=== PATIENT | female | born 1960 | race Caucasian/White ===

== ENCOUNTER 2017-02-09 19:44 | Emergency (ER) | payer OTHER ==
[~2017-02-09] VITALS: Ht 157.5 cm; Wt 106.8 kg
[~2017-02-09 19:44] MED LIST: ATEN25TA PO; ATEN25TA7 PO; HYDR-3797 PO; HYDR12.55 PO; KLO1T PO; LOSA100T3 PO; LOSA25TA21 PO; OMEP20TA86 PO; OXYC1TAB24 PO; SERT25TA6 PO; ZLP5T PO; omeprazole; tramadol
[2017-02-09 20:00] VITALS: BP 132/90; PULSE 64; RESP 18; O2SAT 96
[2017-02-09] MEDS ORDERED: 0.9% Sodium Chloride 1,000 ML IV ONE (21:01)
[2017-02-09] MEDS ORDERED: Ondansetron 2 mg/mL 2 mL Inj IVPUSH ONE (21:05)
--- NOTE | 2017-02-09 21:45 | ED.REPORT ---
HPI-General Illness Date of Service February 09, 2017 ED Provider: Ruiz Ellis MD Patient is a 56 year old female with a history of large uterine fibroids (pt has been previously instructed to have a hysterectomy to "rule out cancer") who presents to the ED with suprapubic abdominal pain that began this evening. She is currently seeking relief for her pain. The pain is a constant pressure with intermittent episodes of severe, sharp pain. Patient was seen at Urgent Care this evening for worsening abdominal pain, low back pain, vaginal spotting, subjective numbness/weakness in the lower extremities, fatigue and urine/fecal incontinence which she attributes to being severely painful. She was noted to have an appointment with TRANSMISSION SYSTEM OPERATOR on 02/23. Patient has been previously seen at the [facility] for uterine fibroids but Urgent Care was unable to obtain the records. Urgent Care performed an extensive workup including CT abdomen/pelvis with contrast and lab work. CT revealed "no definite acute intraabdominal abnormalities", "no evidence of appendicitis", "evidence of chronic diverticulosis without diverticulitis" and a "lobulated uterus with fibroids". Lab work revealed: Mildly elevated CRP at 1.7 Lipase within normal limits Renal function is within normal limits No significant electrolytes UA revealed: No findings suggestive of UTI ESR within normal limits CBC triage today demonstrate borderline leukocytosis 10.5 and Hct 49.2 Nursing Notes Stated Complaint: UTERINE PAIN Chief Complaint: Female Abdominal Pain Nursing Notes Reviewed: Yes Allergies: Coded Allergies: prochlorperazine maleate (Verified Allergy, Intermediate, RESTLESSNESS/' WANTED TO JUMP OUT OF MY SKIN", 01/01/16) hydromorphone (Verified Allergy, Mild, headache, 02/09/17) Penicillins (Verified Allergy, Unknown, RASH, LONG TIME AGO, 01/01/16) promethazine HCl (Verified Adverse Reaction, Severe, Restlessness, 01/01/16) acetaminophen (Verified Adverse Reaction, Intermediate, UPSET STOMACH, N/V , 01/03/16) hydrocodone (Verified Adverse Reaction, Intermediate, Hives/RASH, 01/03/16) HAPPENED A COUPLE DAYS AFTER TAKING ketorolac tromethamine (Verified Adverse Reaction, Intermediate, RESTLESSNESS, "WANTED TO JUMP OUT OF MY SKIN", 01/01/16) lisinopril (Verified Adverse Reaction, Intermediate, TINGLING, NUMBNESS, ) metoprolol (Verified Adverse Reaction, Intermediate, TINGLING NUMBNESS ON SKIN, 01/01/16) prochlorperazine edisylate (Verified Adverse Reaction, Intermediate, RESTLESSNESS/"WANTED TO JUMP OUT OF MY SKIN", 01/01/16) Uncoded Allergies: HYDROXAZINE (Allergy, Mild, 08/01/16) Scheduled Atenolol (Atenolol) 25 Mg Tablet 25 MG PO DAILY Clonazepam (Clonazepam) 1 Mg Tab 1 MG PO BID Losartan Potassium (Cozaar) 100 Mg Tablet 100 MG PO DAILY Sertraline HCl (Sertraline) 25 Mg Tablet 25 MG PO DAILY Scheduled PRN Hydroxyzine Pamoate (HydrOXYzine Pamoate) 25 Mg Capsule 25 MG PO BID PRN PRN For Anxiety Ondansetron ODT (Zofran ODT) 4 Mg Tablet 4 MG PO Q4H PRN PRN For Nausea Zolpidem (Ambien) 5 Mg Tab 5 MG PO HS PRN PRN For Insomnia oxyCODONE-Acetaminophen 5-325 mg (oxyCODONE-Acetaminophen 5-325 mg) 1 Each Tablet 1-2 TAB PO Q6H PRN PRN For Pain oxyCODONE-Acetaminophen 5-325 mg (oxyCODONE-Acetaminophen 5-325 mg) 1 Each Tablet 1 TAB PO Q4H PRN PRN For Pain Miscellaneous Medications ([omeprazole]) ([tramadol]) Atenolol-Expunged Drug, Do Not Renew! (Atenolol-Expunged Drug, Do Not Renew!) 25 Mg Tablet 0 PO Hydrochlorothiazide-Expunged, Do Not Renew! (Hydrochlorothiazide-Expunged, Do Not Renew!) 12.5 Mg Tablet 0 PO Losartan-Expunged Drug, Do Not Renew! (Losartan-Expunged Drug, Do Not Renew!) 25 Mg Tablet 0 PO Omeprazole-Expunged Drug, Do Not Renew! (Omeprazole-Expunged Drug, Do Not Renew! ) 20 Mg Tablet.dr Reinaldo LOPEZ General Time Seen by MD: 20:56 Chief Complaint Abdominal pain Hx Obtained From: Patient Arrived By: Walk-in Sudden in Onset?: No Onset Occurred: 1 - 4 hours ago Symptom Duration: Since onset Location: : Abdomen Quality: Cramping, Painful, Sharp Radiation: : Does not radiate Severity: Current: Moderate Severity: Maximum: Severe Associated with: Reports: Abdominal pain, Nausea, Pain Additional Notes: Incontinence Pertinent Negative: Pt denies other symptoms Recent Healthcare: No recent hospitalization, Recent doctor visit Past Medical History Past Medical History Notes: Patient eloped from the emergency Department 01/04/2016 last ED visit Past Medical History Rosacea Chronic foot pain Fibromyalgia Irritable bowel syndrome Thoracic outlet syndrome Mnire's disease Obesity Chronic back pain Asthma Undergoing evaluation for MS or lupus, awaiting scheduled MRI and followup with a railroad car cleaning supervisor Migraines Hypertension GERD Bipolar and PTSD [facility] Past Surgical History Right foot x2 Left foot x1 Appendectomy Uterine cyst Breast augmentation and repair Family History Noncontributory Smoking History Former Smoker Social History Alcohol Use: Denies alcohol use Drug Use: THC Other Social History: Poor social support, Lives alone, , Local resident Occupation lives by self Ambulatory Status Independent Review of Systems Full Review of Systems Constitutional: Reports: Fatigue GI: Reports: Abdominal pain (suprapubic) Female: Reports: Incontinence (Bowel and bladder ), Pelvic pain Musculoskeletal: Reports: Back pain (Lower ) Neurologic: Reports: Weakness (in LE), Denies: Numbness (in LE) Complete sys rev & neg: except as marked. Physical Exam Vital Signs Vital Signs Date Time Temp Pulse Resp B/P Pulse Ox O2 Delivery O2 Flow Rate FiO2 02/09/17 22:58 64 18 132/90 96 Room Air 02/09/17 20:00 36.6 64 18 132/90 96 Room Air Initial VS: Reviewed Neck: Supple, Non-tender, Full range of motion Extremities: Vascular intact, Neuro intact, No swelling, No tenderness Skin: Warm, Dry, No cyanosis Neurologic: Alert, Oriented, Nonfocal Psychiatric: Mood/affect normal, Behavior normal, Normal thought content General/Constitutional: Awake, Alert Distress / Hydration: Positive: Distress moderate Behavior: Positive: Anxious, Tearful Head / Eyes: Atraumatic, Normocephalic, PERRL Respiratory / Chest: Atraumatic, Breath sounds NL, Breath sounds = bilat, No respiratory distress Cardiovascular: Heart rate NL, Regular rhythm, Heart sounds NL, No murmurs, No rubs Abdomen: Atraumatic, Soft, Non-tender, BS normoactive, No distention Interpretation & Diagnostics Lab Results Interpretation Result Diagram: 02/09/17213402/09/172134 Test 02/09/17 21:35 White Blood Count 10.5th/mm3 (3.8-10.1) Red Blood Count 5.32mil/mm3 (3.90-5.20) Hemoglobin 16.7g/dL (12.0-15.6) Hematocrit 49.2% (35.0-46.0) Mean Corpuscular Volume 92.5fL (81-100) Mean Corpuscular Hemoglobin 31.4pg (27.0-35.0) Mean Corpuscular Hemoglobin Concent 33.9% (32.0-37.0) Red Cell Distribution Width 12.4% (12.3-15.4) Platelet Count 270bil/L (150-400) Neutrophils (%) (Auto) 62.6% (40-74) Lymphocytes (%) (Auto) 25.8% (14-46) Monocytes (%) (Auto) 9.5% (4-12) Eosinophils (%) (Auto) 1.2% (0-5) Basophils (%) (Auto) 0.7% (0-3) Sodium Level 138mEq/L (134-144) Potassium Level 3.9mEq/L (3.5-5.2) Chloride Level 96mEq/L (97-108) Carbon Dioxide Level 27mmol/L (18-29) Blood Urea Nitrogen 16mg/dL (6-24) Creatinine 0.61mg/dL (0.57-1.00) Estimat Glomerular Filtration Rate 144mL/min (>59) Glucose Level 97mg/dL (60-99) Calcium Level 9.8mg/dL (8.5-10.1) Magnesium Level 2.1mg/dL (1.6-2.6) Total Bilirubin 0.5mg/dL (0.0-1.2) Aspartate Amino Transf (AST/SGOT) 19U/L (0-50) Alanine Aminotransferase (ALT/SGPT) 17U/L (0-32) Alkaline Phosphatase 57U/L (25-150) Total Protein 7.8g/dL (6.4-8.4) Albumin 4.2g/dL (3.4-5.0) Lipase 23U/L (13-60) Re-Eval/Medical Decision Med Decision/Clinical Course Patient is a 56 year old female with a history of large uterine fibroids (pt has been previously instructed to have a hysterectomy to "rule out cancer") who presents to the ED with suprapubic abdominal pain that began this evening. She is currently seeking relief for her pain. The pain is a constant pressure with intermittent episodes of severe, sharp pain. Patient was seen at Urgent Care this evening for worsening abdominal pain, low back pain, vaginal spotting, subjective numbness/weakness in the lower extremities, fatigue and urine/fecal incontinence which she attributes to being severely painful. She was noted to have an appointment with TRANSMISSION SYSTEM OPERATOR on 02/23. Patient has been previously seen at the [facility] for uterine fibroids but Urgent Care was unable to obtain the records. Urgent Care performed an extensive workup including CT abdomen/pelvis with contrast and lab work. CT revealed "no definite acute intraabdominal abnormalities", "no evidence of appendicitis", "evidence of chronic diverticulosis without diverticulitis" and a "lobulated uterus with fibroids". Lab work revealed: Mildly elevated CRP at 1.7 Lipase within normal limits Renal function is within normal limits No significant electrolytes UA revealed: No findings suggestive of UTI ESR within normal limits CBC triage today demonstrate borderline leukocytosis 10.5 and Hct 49.2 Here in the emergency room the patient was treated with the below medications: morphine IV fluids Zofran Prior to arrival patient has had extensive workup. Upon sitting down with the patient and having a long conversation she reports that the symptoms that she is having today are chronic in nature and similar to prior episodes of pain but eventually attributed to her uterine fibroids. She reports a very high level of anxiety and stress related to have a uterine fibroids and like to have a hysterectomy. She is hardly scheduled follow-up with TRANSMISSION SYSTEM OPERATOR. We will her initial complaints of weakness in her legs and incontinence are quite concerning thorough neurologic examination today reveals no objective weakness in her legs she is able to easily stand up out of bed and walk and has normal sensation about the groin region. My suspicion for acute neurologic emergency is very low as none of her neurologic complaints or reproducible. Patient states that she does not want to be admitted and "is not sure why she was sent here". I feel that the patient likely would benefit from hysterectomy given the degree of symptoms that she is having related to her uterine fibroids. She understands that this would be best achieved through outpatient evaluation with TRANSMISSION SYSTEM OPERATOR. She reports that she is taking no pain medications at home whatsoever as she does not like the effects of opiates. I discussed with her that a prescription for oxycodone that she could take in the setting of severe breakthrough pain may temporarily help her until she can follow up with TRANSMISSION SYSTEM OPERATOR. She did report significant symptom improvement here after receiving this medication. At this time, I feel that she is appropriate for outpatient management. Prior to discharge follow-up and return precautions were reviewed in detail with the patient who verbalized understanding and agreement with the plan. The patient was discharged in stable condition. Time of Eval: 22:15 Patient Status: Condition improved Re-Evaluation/Progress Note: Patient is rechecked. She is informed of her results and diagnosis. All questions are addressed. She understands and agrees with the intended treatment plan. Counseled Regarding: Diagnosis, Lab results, Need for follow-up, When/why to return to ED Discharge & Departure Primary Impression: Uterine fibroid Uterine leiomyoma location: unspecified location Qualified Code: D25.9 - Leiomyoma of uterus, unspecified Additional Impressions: Lower abdominal pain Acute situational disturbance Chronic pelvic pain in female Anxiety Disposition: Home Discharge Condition All VS Reviewed: Yes Condition: Improved Patient Instructions: Uterine Fibroids (ED) Additional Instructions: Thank you for seeking care at the emergency room. It is difficult for us to make definitive diagnoses in the ED but we believe that your symptoms are likely due to your uterine fibroids. Our primary goal today in the ED was to evaluate you for any life-threatening conditions. Your evaluation was reassuring. You will be discharged with a prescription for Zofran and Buckhorn*. You should follow-up with your licensed acupuncturist in the next week. Please see referral. You should return to the ED immediately if you develop any worsening pain, fevers, vomiting, lightheadedness, weakness or any other concerning signs or symptoms. Thank you for letting us partake in your care today. *You have been prescribed a narcotic for pain relief. These drugs are usually combined with acetaminophen (Tylenol#3, Percocet, Darvocet, Anexsia, Vicodin) or aspirin (Empirin#3, Percodan, Synalogs-DC) for increased effect. Narcotics act on the central nervous system to reduce pain; they also impair mental alertness and physical abilities. We advise you not to drink alcohol, drive a car, or operate dangerous equipment when you are taking these drugs. You can lessen stomach irritation from your medicine by taking it with meals or a full glass of water. Common side effects of narcotics are: Nausea and vomiting , heartburn, constipation, dizziness, sleepiness, and mood changes. If you have bothersome side effects or symptoms of an allergic reaction (itching, hives, rash), stop taking your medicine and call your doctor or the emergency room right away. Please keep your narcotic medicine well out of the reach of children. Referrals: [facility] (PCP) Liang Garcia MD Scribe Attestation Portions of this note were transcribed by Barry Arriaza. I, Dr. Ellis personally performed the history, physical exam and medical decision-making; I reviewed and confirmed the accuracy of the information in the transcribed note. Signed by: Nabeel Barrera, 02/09/17 [id number]. copies to: [facility] Ruiz Ellis MD February 09, 2017 21:45 BARRY ARRIAZA February 09, 2017 22:15
[2017-02-09 21:48] LABS: BASOPHILS % (AUTO) 0.7 % (0-3); EOSINOPHILS % (AUTO) 1.2 % (0-5); MONOCYTES % (AUTO) 9.5 % (4-12); Mean Corpuscular Hemoglobin 31.4 pg (27.0-35.0); Mean Corpuscular Volume 92.5 fL (81-100); NEUTROPHILS % (AUTO) 62.6 % (40-74); Platelet Count 270 bil/L (150-400)
[2017-02-09 22:09] LABS: Magnesium 2.1 mg/dL (1.6-2.6)
[2017-02-09] MEDS ORDERED: OXYC1TAB24 PO (22:18)
[2017-02-09] MEDS ORDERED: ONDA4TAB9 PO (22:19)
[2017-02-09 22:58] VITALS: BP 132/90; PULSE 64; RESP 18; O2SAT 96
== END 2017-02-09 23:00 | disposition home or self-care (01) ==
LOC: SED 20:03
DX: D25.9 Leiomyoma of uterus, unspecified (principal); R10.30 Lower abdominal pain, unspecified; F43.0 Acute stress reaction; R10.2 Pelvic and perineal pain; F41.9 Anxiety disorder, unspecified; J45.909 Unspecified asthma, uncomplicated; I10 Essential (primary) hypertension; K21.9 Gastro-esophageal reflux disease without esophagitis; F31.9 Bipolar disorder, unspecified; F43.10 Post-traumatic stress disorder, unspecified; Z87.891 Personal history of nicotine dependence; Z88.8 Allergy status to other drugs, medicaments and biological substances; Z88.5 Allergy status to narcotic agent; Z88.0 Allergy status to penicillin; Z88.6 Allergy status to analgesic agent
CPT/HCPCS: 36415; 80053; 83690; 83735; 85025; 96361; 96374; 96375; 99285; J2270; J2405; J7030

== ENCOUNTER 2017-03-31 13:01 | Emergency (ER) | payer OTHER ==
[~2017-03-31] VITALS: Ht 157.5 cm; Wt 103.2 kg
[~2017-03-31 13:01] MED LIST changes: +ONDA4TAB9 PO
[2017-03-31 13:03] VITALS: BP 146/80; PULSE 65; RESP 20; O2SAT 98
--- NOTE | 2017-03-31 13:29 | ED.REPORT ---
HPI-General Illness Date of Service Mar 31, 2017 ED Provider: Dr. Winter Pt is a 56 year old female with a hx of HTN, asthma, presenting to the ED complaining of rectal bleeding onset yesterday that stopped after a single episode. Associated symptoms include mild urine and stool incontinence, 4 pre- syncopal like episodes (for a few days) associated with severe abdominal cramps , nausea, and abdominal distention. She describes the "spells" as a knot in her stomach that moves up through her body and then makes her legs "sink ". Denies dysuria, or any other symptoms at this time, or any hx of rectal bleeding, heart disease, cancer, kidney disease. The "spells" are always associated with pain, but not with bowel movements. Exacerbated by laying on her right side. She has an appointment for a biopsy of uterine fibroids on April 11. She had a CT scan in 01/2017 showing diverticulosis without diverticulitis and uterine fibroids. She is very fearful that she has uterine cancer and that this is spread into her bowels. Nursing Notes Stated Complaint: SYNCOPE EPISODES/RECTAL BLEEDING Chief Complaint: General Complaint Nursing Notes Reviewed: Yes Allergies: Coded Allergies: prochlorperazine maleate (Verified Allergy, Intermediate, RESTLESSNESS/' WANTED TO JUMP OUT OF MY SKIN", 01/01/16) hydromorphone (Verified Allergy, Mild, headache, 02/09/17) Penicillins (Verified Allergy, Unknown, RASH, LONG TIME AGO, 01/01/16) promethazine HCl (Verified Adverse Reaction, Severe, Restlessness, 01/01/16) acetaminophen (Verified Adverse Reaction, Intermediate, UPSET STOMACH, N/V , 01/03/16) ketorolac tromethamine (Verified Adverse Reaction, Intermediate, RESTLESSNESS, "WANTED TO JUMP OUT OF MY SKIN", 01/01/16) lisinopril (Verified Adverse Reaction, Intermediate, TINGLING, NUMBNESS, ) metoprolol (Verified Adverse Reaction, Intermediate, TINGLING NUMBNESS ON SKIN, 01/01/16) prochlorperazine edisylate (Verified Adverse Reaction, Intermediate, RESTLESSNESS/"WANTED TO JUMP OUT OF MY SKIN", 01/01/16) Uncoded Allergies: HYDROXAZINE (Allergy, Mild, 11/7/16) Scheduled Atenolol (Atenolol) 25 Mg Tablet 25 MG PO DAILY Clonazepam (Clonazepam) 1 Mg Tab 1 MG PO BID Losartan Potassium (Cozaar) 100 Mg Tablet 100 MG PO DAILY Sertraline HCl (Sertraline) 25 Mg Tablet 25 MG PO DAILY Scheduled PRN Hydroxyzine Pamoate (HydrOXYzine Pamoate) 25 Mg Capsule 25 MG PO BID PRN PRN For Anxiety Ondansetron ODT (Zofran ODT) 4 Mg Tablet 4 MG PO Q4H PRN PRN For Nausea Zolpidem (Ambien) 5 Mg Tab 5 MG PO HS PRN PRN For Insomnia oxyCODONE-Acetaminophen 5-325 mg (oxyCODONE-Acetaminophen 5-325 mg) 1 Each Tablet 1-2 TAB PO Q6H PRN PRN For Pain oxyCODONE-Acetaminophen 5-325 mg (oxyCODONE-Acetaminophen 5-325 mg) 1 Each Tablet 1 TAB PO Q4H PRN PRN For Pain Miscellaneous Medications ([omeprazole]) ([tramadol]) Atenolol-Expunged Drug, Do Not Renew! (Atenolol-Expunged Drug, Do Not Renew!) 25 Mg Tablet 0 PO Hydrochlorothiazide-Expunged, Do Not Renew! (Hydrochlorothiazide-Expunged, Do Not Renew!) 12.5 Mg Tablet 0 PO Losartan-Expunged Drug, Do Not Renew! (Losartan-Expunged Drug, Do Not Renew!) 25 Mg Tablet 0 PO Omeprazole-Expunged Drug, Do Not Renew! (Omeprazole-Expunged Drug, Do Not Renew! ) 20 Mg Tablet.dr Reinaldo LOPEZ General Time Seen by MD: 13:28 Chief Complaint Other (Rectal bleeding) Hx Obtained From: Patient Arrived By: Walk-in Sudden in Onset?: No Onset Occurred: Yesterday Symptom Duration: Since onset Recent Healthcare: No recent doctor visit, No recent hospitalization Similar Sx Previous: No Past Medical History Past Medical History Hx of Afib but not currently Rosacea Chronic foot pain Fibromyalgia Irritable bowel syndrome Thoracic outlet syndrome Mnire's disease Obesity Chronic back pain Asthma Undergoing evaluation for MS or lupus, awaiting scheduled MRI and followup with a professor of biblical studies Migraines Hypertension GERD Bipolar and PTSD Admitted to [facility] June 2014 Past Surgical History Right foot x2 Left foot x1 Appendectomy Uterine cyst Breast augmentation and repair Family History Noncontributory Smoking History Former Smoker Social History Alcohol Use: Denies alcohol use Drug Use: THC Other Social History: Poor social support, Lives alone, , Local resident Occupation lives by self Ambulatory Status Independent Review of Systems + Abdominal swelling Full Review of Systems Constitutional: Denies: Fever Respiratory: Denies: Shortness of breath Cardiovascular: Reports: Edema, Denies: Chest pain GI: Reports: Bloody/tarry stool, Nausea Neurologic: Reports: Bladder dysfunction, Bowel dysfunction, Syncope Complete sys rev & neg: except as marked. Physical Exam Vital Signs Vital Signs Date Time Temp Pulse Resp B/P Pulse Ox O2 Delivery O2 Flow Rate FiO2 03/31/17 16:26 36.8 66 19 122/71 97 Room Air 03/31/17 14:13 70 20 122/91 96 Room Air 03/31/17 13:03 36.6 65 20 146/80 98 Room Air Initial VS: Reviewed General/Constitutional: Well-developed, Well-nourished Head / Eyes: Atraumatic, Normocephalic, PERRL ENT: Mucous membranes moist, Conjunctiva normal, No scleral icterus Neck: Supple, Non-tender, Full range of motion Respiratory: Breath sounds normal, Clear to auscultation, No respiratory distress Cardiovascular: Regular rate & rhythm, Heart sounds normal, Intact distal pulses Extremities: Vascular intact, Neuro intact, No swelling, No tenderness Skin: Warm, Dry, No cyanosis Neurologic: Alert, Oriented, Nonfocal Psychiatric: Mood/affect normal, Behavior normal, Normal thought content While laying down: HR: 65 BP: 114/82 While standing: HR: 65 BP: 124/88 Abdomen: No guarding, No rebound Tenderness/Guarding/Rebound: Positive: Tender diffuse Rectum / Perineum: Atraumatic, Blood - occult heme -, No gross blood Old hemorrhoidal tissue. No stool present. Guaiac negative. Interpretation & Diagnostics Lab Results Interpretation Result Diagram: 03/31/17 1335 03/31/17 1335 Test 03/31/17 13:35 03/31/17 15:38 White Blood Count 11.2th/mm3 (3.8-10.1) Red Blood Count 5.12mil/mm3 (3.90-5.20) Hemoglobin 16.2g/dL (12.0-15.6) Hematocrit 48.7% (35.0-46.0) Mean Corpuscular Volume 95.1fL (81-100) Mean Corpuscular Hemoglobin 31.6pg (27.0-35.0) Mean Corpuscular Hemoglobin Concent 33.3% (32.0-37.0) Red Cell Distribution Width 12.3% (12.3-15.4) Platelet Count 275bil/L (150-400) Neutrophils (%) (Auto) 66.5% (40-74) Lymphocytes (%) (Auto) 22.9% (14-46) Monocytes (%) (Auto) 7.8% (4-12) Eosinophils (%) (Auto) 2.0% (0-5) Basophils (%) (Auto) 0.4% (0-3) Prothrombin Time 9.6sec (8.1-12.5) Prothromb Time International Ratio 0.90ratio Sodium Level 140mEq/L (134-144) Potassium Level 3.9mEq/L (3.5-5.2) Chloride Level 98mEq/L (97-108) Carbon Dioxide Level 27mmol/L (18-29) Blood Urea Nitrogen 15mg/dL (6-24) Creatinine 0.56mg/dL (0.57-1.00) Estimat Glomerular Filtration Rate 159mL/min (>59) Glucose Level 128mg/dL (60-99) Calcium Level 9.1mg/dL (8.5-10.1) Total Bilirubin 0.4mg/dL (0.0-1.2) Aspartate Amino Transf (AST/SGOT) 16U/L (0-50) Alanine Aminotransferase (ALT/SGPT) 16U/L (0-32) Alkaline Phosphatase 51U/L (25-150) Total Protein 7.3g/dL (6.4-8.4) Albumin 3.9g/dL (3.4-5.0) Urine Color Yellow (YELLOW) Urine Appearance Clear (CLEAR,HAZY) Urine pH 5.5 (5.0-8.0) Urine Specific [place] 1.010 (1.003-1.035) Urine Protein Negativemg/dL (NEG,TRACE) Urine Glucose (UA) Negativemg/dL (NEGATIVE) Urine Ketones Negativemg/dL (NEGATIVE) Urine Occult Blood Negative (NEGATIVE) Urine Nitrite Negative (NEGATIVE) Urine Bilirubin Negative (NEGATIVE) Urine Urobilinogen Normalmg/dL (NORMAL) Urine Leukocyte Esterase Negative (NEGATIVE) Urine RBC 0-2/hpf (0-2) Urine WBC 0-5/hpf (0-5) Urine Epithelial Cells Few/hpf (NONE-MOD) Urine Crystals None seen (NONE SEEN) Urine Bacteria Few/hpf (NONE-FEW) Urine Hyaline Casts None/lpf (NONE) Urine Granular Casts None seen (NONE SEEN) Urine Waxy Casts None seen (NONE SEEN) Urine Red Blood Cell Casts None seen (NONE SEEN) Urine White Blood Cell Casts None seen (NONE SEEN) Urine Mucus None seen (None Seen) Urine Trichomonas None seen (NONE SEEN) Urine Yeast None (NONE SEEN) Urinalysis Comment None Urine Culture Reflexed Not indicated ECG Interpretation ECG Interpretation: Sinus tachycardia with a rate of 100. Paired ventricular premature complexes. Abnormal R-wave progression, early transition. Time: 13:57 Interpreted by: ED physician Re-Eval/Medical Decision Time of Eval: 17:45 Patient Status: Condition improved Re-Evaluation/Progress Note: Performed physical exam. The pt last had a colonoscopy a few years ago. Discussed plan for discharge. Pt understands and agrees with plan. Counseled Regarding: Diagnosis, Lab results, Need for follow-up, When/why to return to ED Discharge & Departure Primary Impression: Lower abdominal pain Additional Impression: Near syncope Disposition: Home Discharge Condition All VS Reviewed: Yes Condition: Improved Patient Instructions: Acute Abdominal Pain (ED) Additional Instructions: No dangerous cause for your symptoms today was identified. Your labs and EKG look normal. Call Dr. Neely and the sole rounder to make an appointment for next week. You will likely need a colonoscopy in the near future. Return to the ER if you develop any new or worsening symptoms. I think your symptoms may be related to the mass effect of your uterine tumors. I recommend Levsin as needed to control a crampy pain. Referrals: [facility] (PCP) KEO NEELY Attestation Portions of this note were transcribed by Julissa Duran. I, Dr. Winter personally performed the history, physical exam and medical decision-making; I reviewed and confirmed the accuracy of the information in the transcribed note. Signed by: Nabeel Roberts, 03/31/2017 at 1810. copies to: KEO NEELY DO; [facility] Wilver Winter MD Mar 31, 2017 13:29 JULISSA DURAN Mar 31, 2017 13:36
[2017-03-31] MEDS ORDERED: 0.9% Sodium Chloride 1,000 ML IV ONE (13:32)
[2017-03-31] MEDS ORDERED: HYDROcodone-APAP 5-325 mg Tablet PO ONE (13:40)
[2017-03-31 13:47] LABS: INR 0.9 ratio
[2017-03-31 13:50] LABS: BASOPHILS % (AUTO) 0.4 % (0-3); MONOCYTES % (AUTO) 7.8 % (4-12); Mean Corpuscular Hemoglobin 31.6 pg (27.0-35.0); Mean Corpuscular Volume 95.1 fL (81-100); NEUTROPHILS % (AUTO) 66.5 % (40-74); Platelet Count 275 bil/L (150-400)
[2017-03-31 14:13] VITALS: BP 122/91; PULSE 70; RESP 20; O2SAT 96
[2017-03-31 16:02] LABS: APPEARANCE,URINE CLEAR (CLEAR,HAZY); COLOR,URINE YELLOW (YELLOW); OCCULT BLOOD,URINE NEGATIVE (NEGATIVE); PH,URINE 5.5 (5.0-8.0); UROBILINOGEN,URINE NORMAL (NORMAL)
[2017-03-31 16:26] VITALS: BP 122/71; PULSE 66; RESP 19; O2SAT 97
[2017-03-31] MEDS ORDERED: HYDROcodone-APAP 10-325 mg PO ONE (16:45)
[2017-03-31] MEDS ORDERED: HYOS-19 PO (18:15)
[2017-03-31 19:03] VITALS: BP 125/80; PULSE 59; RESP 20; O2SAT 99
[2017-04-04] MEDS ORDERED: ATEN25TA PO (15:18)
[2017-04-04] MEDS ORDERED: SERT25TA6 PO (15:18)
[2017-04-04] MEDS ORDERED: OMEP20TA86 PO (15:18)
[2017-04-04] MEDS ORDERED: HYDR12.55 PO (15:18)
[2017-04-04] MEDS ORDERED: [UNRECOGNIZED DRUG - CODE] TP (15:18)
[2017-04-04] MEDS ORDERED: PYR50 PO (15:18)
[2017-04-04] MEDS ORDERED: LOSA100T29 PO (15:18)
[2017-04-04] MEDS ORDERED: KLO1T PO (15:18)
[2017-04-04] MEDS ORDERED: vitamin d3 (15:18)
[2017-04-04] MEDS ORDERED: tramadol (15:18)
[2017-04-04] MEDS ORDERED: ALBU8.5H2 INHALATION (15:18)
[2017-04-04] MEDS ORDERED: VALA100026 PO (15:18)
== END 2017-03-31 19:04 | disposition home or self-care (01) ==
LOC: SED 13:01
DX: R10.30 Lower abdominal pain, unspecified (principal); R55 Syncope and collapse; R32 Unspecified urinary incontinence; R11.0 Nausea; R14.0 Abdominal distension (gaseous); E66.9 Obesity, unspecified; J45.909 Unspecified asthma, uncomplicated; I10 Essential (primary) hypertension; K21.9 Gastro-esophageal reflux disease without esophagitis; F31.9 Bipolar disorder, unspecified; F43.10 Post-traumatic stress disorder, unspecified; D25.9 Leiomyoma of uterus, unspecified; R73.03 Prediabetes; Z87.19 Personal history of other diseases of the digestive system; Z87.891 Personal history of nicotine dependence; Z68.41 Body mass index [BMI] 40.0-44.9, adult; Z88.8 Allergy status to other drugs, medicaments and biological substances; Z88.5 Allergy status to narcotic agent; Z88.0 Allergy status to penicillin; Z88.6 Allergy status to analgesic agent
CPT/HCPCS: 36415; 80053; 81000; 85025; 85610; 93005; 99284; A4300; G0463; J7030

== ENCOUNTER 2017-04-01 16:43 | Emergency (ER) | payer OTHER ==
[~2017-04-01] VITALS: Ht 157.5 cm; Wt 105.5 kg
[~2017-04-01 16:43] MED LIST changes: +HYOS-19 PO
[2017-04-01 16:51] VITALS: BP 151/87; PULSE 166; RESP 30; O2SAT 96
--- NOTE | 2017-04-01 17:05 | ED.REPORT ---
HPI-Chest Pain 40 and Over Date of Service Apr 01, 2017 ED Provider: Orville Spence DO The patient is a 56 year old female with history of atrial fibrillation, hypertension, asthma, fibromyalgia, irritable bowel syndrome, GERD, chronic pain , migraines, bipolar and PTSD, who presents to the emergency department complaining of chest pain, palpitations, and feeling like she is going to pass out. The patient states she gets lower abdominal cramping, loses the strength in her legs, then feels like she is going to pass out. She has had similar episodes intermittently for the last few years. She was seen in the emergency department yesterday for similar symptoms, as well as an episode of bright red stools. She had an EKG and blood work during this visit, and was discharged home. She also mentions recent difficulty urinating. Nursing Notes Stated Complaint: RAPID HEART RATE Chief Complaint: Chest Pain Nursing Notes Reviewed: Yes Allergies: Coded Allergies: prochlorperazine maleate (Verified Allergy, Intermediate, RESTLESSNESS/' WANTED TO JUMP OUT OF MY SKIN", 04/01/17) hydromorphone (Verified Allergy, Mild, headache, 04/01/17) Penicillins (Verified Allergy, Unknown, RASH, LONG TIME AGO, 04/01/17) promethazine HCl (Verified Adverse Reaction, Severe, Restlessness, 04/01/17) acetaminophen (Verified Adverse Reaction, Intermediate, UPSET STOMACH, N/V , 04/01/17) ketorolac tromethamine (Verified Adverse Reaction, Intermediate, RESTLESSNESS, "WANTED TO JUMP OUT OF MY SKIN", 04/01/17) lisinopril (Verified Adverse Reaction, Intermediate, TINGLING, NUMBNESS, ) metoprolol (Verified Adverse Reaction, Intermediate, TINGLING NUMBNESS ON SKIN, 04/01/17) prochlorperazine edisylate (Verified Adverse Reaction, Intermediate, RESTLESSNESS/"WANTED TO JUMP OUT OF MY SKIN", 04/01/17) Uncoded Allergies: HYDROXAZINE (Allergy, Mild, 08/01/16) Scheduled Atenolol (Atenolol) 25 Mg Tablet 25 MG PO DAILY Clonazepam (Clonazepam) 1 Mg Tab 1 MG PO BID Losartan Potassium (Cozaar) 100 Mg Tablet 100 MG PO DAILY Sertraline HCl (Sertraline) 25 Mg Tablet 25 MG PO DAILY Scheduled PRN Hydroxyzine Pamoate (HydrOXYzine Pamoate) 25 Mg Capsule 25 MG PO BID PRN PRN For Anxiety Hyoscyamine ODT (Hyoscyamine ODT) 0.125 Mg Tab.rapdis 0.125 MG PO QID PRN PRN For GI Cramps Ondansetron ODT (Zofran ODT) 4 Mg Tablet 4 MG PO Q4H PRN PRN For Nausea Zolpidem (Ambien) 5 Mg Tab 5 MG PO HS PRN PRN For Insomnia oxyCODONE-Acetaminophen 5-325 mg (oxyCODONE-Acetaminophen 5-325 mg) 1 Each Tablet 1-2 TAB PO Q6H PRN PRN For Pain oxyCODONE-Acetaminophen 5-325 mg (oxyCODONE-Acetaminophen 5-325 mg) 1 Each Tablet 1 TAB PO Q4H PRN PRN For Pain Miscellaneous Medications ([omeprazole]) ([tramadol]) Atenolol-Expunged Drug, Do Not Renew! (Atenolol-Expunged Drug, Do Not Renew!) 25 Mg Tablet 0 PO Hydrochlorothiazide-Expunged, Do Not Renew! (Hydrochlorothiazide-Expunged, Do Not Renew!) 12.5 Mg Tablet 0 PO Losartan-Expunged Drug, Do Not Renew! (Losartan-Expunged Drug, Do Not Renew!) 25 Mg Tablet 0 PO Omeprazole-Expunged Drug, Do Not Renew! (Omeprazole-Expunged Drug, Do Not Renew! ) 20 Mg Tablet.dr Reinaldo LOPEZ General Time Seen by MD: 17:04 Chief Complaint Chest pain, Other (palpitations, and near syncope) Hx Obtained From: Patient Arrived By: Walk-in Sudden in Onset?: Yes Onset Occurred: More than a week ago... 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 Migraines Hypertension GERD Bipolar and PTSD-admitted to [facility] June 2014 Past Surgical History Right foot x2 Left foot x1 Appendectomy Uterine cyst Breast augmentation and repair Family History Noncontributory Smoking History Former Smoker Social History Alcohol Use: Denies alcohol use Drug Use: THC Other Social History: Poor social support, Lives alone, , Local resident Occupation lives by self Ambulatory Status Independent Review of Systems Review of Systems Note: +difficulty urinating Cardiovascular: Reports: Chest pain, Palpitations GI: Reports: Abdominal pain (cramping), Bloody/tarry stool (1 episode yesterday ) Neurologic: Reports: Syncope (pre-syncopal episodes), Weakness (legs, bilaterally) Complete sys rev & neg: except as marked. Physical Exam Initial Vital Signs Vital Signs (First) Date Time Temp Pulse Resp B/P Pulse Ox O2 Delivery O2 Flow Rate FiO2 04/01/17 16:51 36.5 166 30 151/87 96 Room Air Initial VS: Reviewed Head / Eyes: Atraumatic, Normocephalic, PERRL ENT: Mucous membranes moist, Conjunctiva normal, No scleral icterus Neck: Supple, Non-tender, Full range of motion Lymphatic: No lymphadenopathy Extremities: Vascular intact, Neuro intact, No swelling, No tenderness Skin: Warm, Dry, No cyanosis Neurologic: Alert, Oriented, Nonfocal Psychiatric: Mood/affect normal, Behavior normal, Normal thought content General/Constitutional: Awake, Alert Distress / Hydration: Positive: Distress mild Behavior: Positive: Anxious Respiratory / Chest: Atraumatic, Breath sounds NL, Breath sounds = bilat, No respiratory distress, No rales, No rhonchi, No wheezing, No stridor, No chest tenderness Cardiovascular: Heart rate NL, Regular rhythm, Heart sounds NL, No gallop, No murmurs, No rubs, Peripheral circulation NL, Pulses = bilaterally, No gross BP differential Abdomen: Soft, No guarding, No rebound, BS normoactive, No distention, No hernia, No palpable mass, No pulsatile mass Lower abdominal tenderness Interpretation & Diagnostics Lab Results Interpretation Result Diagram: 04/01/17 1755 Test 04/01/17 17:55 04/01/17 17:56 White Blood Count 10.6th/mm3 (3.8-10.1) Red Blood Count 4.97mil/mm3 (3.90-5.20) Hemoglobin 15.4g/dL (12.0-15.6) Hematocrit 47.0% (35.0-46.0) Mean Corpuscular Volume 94.6fL (81-100) Mean Corpuscular Hemoglobin 31.0pg (27.0-35.0) Mean Corpuscular Hemoglobin Concent 32.8% (32.0-37.0) Red Cell Distribution Width 12.1% (12.3-15.4) Platelet Count 246bil/L (150-400) Neutrophils (%) (Auto) 69.5% (40-74) Lymphocytes (%) (Auto) 21.6% (14-46) Monocytes (%) (Auto) 7.0% (4-12) Eosinophils (%) (Auto) 1.2% (0-5) Basophils (%) (Auto) 0.4% (0-3) Hold Tuttle Top Tube Received (Received) ECG Interpretation ECG Interpretation: Sinus rhythm with a rate of 88 PACs Time: 17:20 Interpreted by: ED physician X-Ray Chest Interpretation Chest Xray Interpretation: IMPRESSION: No acute cardiopulmonary findings. Dictated by: Kirti Perry M.D. on 04/01/2017 at 17:59 Interpretation / Wet Read by: Interpret - Radiologist Re-Eval/Medical Decision Med Decision/Clinical Course Patient presents with palpitations and presyncopal feeling of unclear etiology, she was reportedly tachycardic in triage however her EKG is reassuring. Currently awaiting further workup Source of Hx: Old records Counseled Regarding: Diagnosis, Lab results Discharge & Departure Shift Change Sign-Out Patient Care Transferred: Yes Discussed Complaint(s): Yes Laboratory Evaluation: Ordered, not yet done Imaging Studies: Ordered, not yet done Response to Therapy: Improved, Discussed Primary Impression: Chest pain Chest pain type: unspecified Qualified Code: R07.9 - Chest pain, unspecified Discharge Condition All VS Reviewed: Yes Condition: Stable Referrals: [facility] (PCP) Care Transferred to: Dr. Green Care Transferred at: 18:01 Nabeel Attestation Portions of this note were transcribed by Makayla Erazo. I, Dr. Spence personally performed the history, physical exam and medical decision-making; I reviewed and confirmed the accuracy of the information in the transcribed note. Signed by: Nabeel Judd, 04/01/2017 at 1815. copies to: [facility] Orville Spence DO Apr 01, 2017 17:05 Castro,Makayla Lilly Apr 01, 2017 17:12
[2017-04-01] MEDS ORDERED: 0.9% Sodium Chloride 1,000 ML IV ONE (17:20)
[2017-04-01 17:59] LABS: BASOPHILS % (AUTO) 0.4 % (0-3); EOSINOPHILS % (AUTO) 1.2 % (0-5); Mean Corpuscular Volume 94.6 fL (81-100); NEUTROPHILS % (AUTO) 69.5 % (40-74); Platelet Count 246 bil/L (150-400)
--- NOTE | 2017-04-01 18:03 | DRSVH ---
PROCEDURE: X-RAY CHEST ONE VIEW, PORTABLE ([id number]) INDICATIONS: cp TECHNIQUE: One view of the chest was acquired. COMPARISON: None. FINDINGS: Surgical changes and devices: None. Lungs and pleura: No pleural effusions or pneumothorax. Lungs are clear. Mediastinum: Mediastinal contours appear normal. Heart size is normal. Bones and chest wall: No suspicious bony lesions. Overlying soft tissues appear unremarkable. IMPRESSION: No acute cardiopulmonary findings. Dictated by: Kirti Perry M.D. on 04/01/2017 at 17:59 Approved by: Kirti Perry M.D. on 04/01/2017 at 18:01
[2017-04-01 18:27] VITALS: BP 132/59; PULSE 84; RESP 20
[2017-04-01 18:30] LABS: TROPONIN T < 0.010 ug/L (0.0-0.011)
[2017-04-01 19:25] LABS: APPEARANCE,URINE CLEAR (CLEAR,HAZY); COLOR,URINE STRAW (YELLOW); OCCULT BLOOD,URINE NEGATIVE (NEGATIVE); UROBILINOGEN,URINE NORMAL (NORMAL)
[2017-04-01] MEDS ORDERED: Trimethoprim-Sulfa 160 mg-800 mg Tablet PO ONE (20:20)
[2017-04-01 21:04] VITALS: BP 136/69; PULSE 67; RESP 20; O2SAT 100
[2017-04-01 22:39] VITALS: BP 127/73; PULSE 67; RESP 18; O2SAT 97
[2017-04-04] MEDS ORDERED: KLO1T PO (15:18)
[2017-04-04] MEDS ORDERED: LOSA100T29 PO (15:18)
[2017-04-04] MEDS ORDERED: [UNRECOGNIZED DRUG - CODE] TP (15:18)
[2017-04-04] MEDS ORDERED: OMEP20TA86 PO (15:18)
[2017-04-04] MEDS ORDERED: tramadol PO (15:18)
[2017-04-04] MEDS ORDERED: SERT25TA6 PO (15:18)
[2017-04-04] MEDS ORDERED: VALA100026 PO (15:18)
[2017-04-04] MEDS ORDERED: HYDR12.55 PO (15:18)
[2017-04-04] MEDS ORDERED: vitamin d3 (15:18)
[2017-04-04] MEDS ORDERED: ALBU8.5H2 INHALATION (15:18)
[2017-04-04] MEDS ORDERED: PYR50 PO (15:18)
[2017-04-04] MEDS ORDERED: ATEN25TA PO (15:18)
== END 2017-04-01 22:37 | disposition home or self-care (01) ==
LOC: SED 16:43
DX: N39.0 Urinary tract infection, site not specified (principal); R00.2 Palpitations; R07.9 Chest pain, unspecified; I11.9 Hypertensive heart disease without heart failure; I48.91 Unspecified atrial fibrillation; M79.7 Fibromyalgia; K21.9 Gastro-esophageal reflux disease without esophagitis; F32.9 Major depressive disorder, single episode, unspecified; G43.909 Migraine, unspecified, not intractable, without status migrainosus; J45.909 Unspecified asthma, uncomplicated; Z87.891 Personal history of nicotine dependence; Z88.0 Allergy status to penicillin; Z88.1 Allergy status to other antibiotic agents; Z88.5 Allergy status to narcotic agent; Z88.6 Allergy status to analgesic agent; Z88.8 Allergy status to other drugs, medicaments and biological substances
CPT/HCPCS: 36415; 71010; 80053; 81000; 83735; 84443; 84484; 85025; 85378; 86850; 87086; 93005; 96361; 96374; 99285; J2060; J7030

== ENCOUNTER 2017-04-13 14:03 | Observation (INO) | payer OTHER ==
[~2017-04-13] VITALS: Ht 157.5 cm; Wt 103.0 kg
[~2017-04-13 14:03] MED LIST changes: +ALBU8.5H2 INHALATION; -ATEN25TA7 PO; -HYDR-3797 PO; -HYOS-19 PO; +LOSA100T29 PO; -LOSA100T3 PO; -LOSA25TA21 PO; -ONDA4TAB9 PO; -OXYC1TAB24 PO; +PYR50 PO; +VALA100026 PO; -ZLP5T PO; +[UNRECOGNIZED DRUG - CODE] TP; -omeprazole; -tramadol; +tramadol PO; +vitamin d3
[2017-04-13 14:10] VITALS: BP 107/73; PULSE 91; RESP 12; O2SAT 96
[2017-04-13] MEDS ORDERED: 0.9% Sodium Chloride 1,000 ML IV ONE (15:10)
--- NOTE | 2017-04-13 15:29 | ED.REPORT ---
HPI-General Illness Date of Service Apr 13, 2017 ED Provider: Blu Andino MD The patient is a 56 year old female with history of atrial fibrillation, hypertension, asthma, fibromyalgia, irritable bowel syndrome, GERD, chronic pain , migraines, bipolar and PTSD, who presents to the emergency department due to several days of increasingly frequent episodes of heart racing with a rate up to 185. The episodes last for over an hour at a time, no notable alleviating or exacerbating factors, and are associated with generalized lower extremity weakness and fatigue. She has had these episodes before, but never at this severity or frequency. Pt has not fallen or hit her head, and denies one sided weakness, headache, vision change, fever, bowel/bladder dysfunction, vomiting, nausea and chest pain. Pt lives alone. No other complaints at this time. Nursing Notes Stated Complaint: HEART RATE SPEEDING/ANXIETY/WEAK Chief Complaint: General Complaint Nursing Notes Reviewed: Yes Allergies: Coded Allergies: prochlorperazine maleate (Verified Allergy, Intermediate, RESTLESSNESS/' WANTED TO JUMP OUT OF MY SKIN", 04/01/17) hydromorphone (Verified Allergy, Mild, headache, 04/01/17) Penicillins (Verified Allergy, Unknown, RASH, LONG TIME AGO, 04/01/17) promethazine HCl (Verified Adverse Reaction, Severe, Restlessness, 04/01/17) acetaminophen (Verified Adverse Reaction, Intermediate, UPSET STOMACH, N/V , 04/01/17) ketorolac tromethamine (Verified Adverse Reaction, Intermediate, RESTLESSNESS, "WANTED TO JUMP OUT OF MY SKIN", 04/01/17) lisinopril (Verified Adverse Reaction, Intermediate, TINGLING, NUMBNESS, ) metoprolol (Verified Adverse Reaction, Intermediate, TINGLING NUMBNESS ON SKIN, 04/01/17) prochlorperazine edisylate (Verified Adverse Reaction, Intermediate, RESTLESSNESS/"WANTED TO JUMP OUT OF MY SKIN", 04/01/17) Uncoded Allergies: HYDROXAZINE (Allergy, Mild, 08/01/16) Scheduled ([tramadol]) Unknown Dose DAILY ([vitamin d3]) Unknown Dose DAILY Atenolol (Atenolol) 25 Mg Tablet 25 MG PO DAILY Hydrochlorothiazide (Hydrochlorothiazide) 12.5 Mg Tablet 12.5 MG PO DAILY Losartan Potassium (Losartan Potassium) 100 Mg Tablet 100 MG PO DAILY Omeprazole (Omeprazole) 20 Mg Tablet.dr 20 MG PO QAM Pyridoxine (Vitamin B-6) 50 Mg Tablet 50 MG PO DAILY Sertraline HCl (Sertraline) 25 Mg Tablet 25 MG PO DAILY Sulfacetamide Sodium (Ovace) 180 Ml Cleanser 180 ML TP DAILY Valacyclovir (Valacyclovir) 1,000 Mg Tablet 2,000 MG PO DAILY Scheduled PRN Albuterol HFA (Proair HFA) 8.5 Gm Hfa.aer.ad 2 PUFFS INHALATION Q4H PRN PRN For Shortness of Breath Clonazepam (Clonazepam) 1 Mg Tablet 1 MG PO BID PRN PRN For Anxiety General Time Seen by MD: 15:00 Chief Complaint Other (heart racing) Hx Obtained From: Patient Arrived By: Walk-in Sudden in Onset?: Yes Onset Occurred: 3 days ago Symptom Duration: Since onset Recent Healthcare: Recent doctor visit Similar Sx Previous: Yes Past Medical History Past Medical History Atrial fibrillation Rosacea Chronic foot pain Fibromyalgia Irritable bowel syndrome Thoracic outlet syndrome Mnire's disease Obesity Chronic back pain Asthma Undergoing evaluation for MS or lupus, awaiting scheduled MRI and 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 Migraines Hypertension GERD Bipolar and PTSD-[facility] Past Surgical History Right foot x2 Left foot x1 Appendectomy Uterine cyst Breast augmentation and repair Family History Noncontributory Smoking History Never Smoker Social History Alcohol Use: Denies alcohol use Drug Use: THC Other Social History: Poor social support, Lives alone, , Local resident Occupation lives by self Ambulatory Status Independent Review of Systems heart racing Full Review of Systems Constitutional: Reports: Fatigue, Weakness - generalized, Denies: Fever Cardiovascular: Reports: Syncope (near syncope), Denies: Chest pain GI: Denies: Nausea, Vomiting Neurologic: Reports: Lightheaded, Weakness, Denies: Bladder dysfunction, Bowel dysfunction, Headache, Vision change Psychiatric: Reports: Anxiety, Stress Complete sys rev & neg: except as marked. Physical Exam Nursing note and vitals reviewed. Constitutional: Well-developed, well-nourished obese female lying in bed. Not diaphoretic.Very anxious. Head: Normocephalic and atraumatic. Mouth/Throat: Oropharynx is clear and moist. No oropharyngeal exudate. Eyes: EOM are normal. Pupils are equal, round, and reactive to light. Neck: Supple, no tracheal deviation. Cardiovascular: Normal rate, regular rhythm. Equal and intact distal pulses throughout. Pulmonary/Chest: Effort normal and breath sounds normal. No respiratory distress. Abdominal: Soft. No distension. There is no tenderness, rebound, or guarding. Bowel sounds present Musculoskeletal: Range of motion grossly intact, moving all extremities. No edema or tenderness appreciated. Neurological: AOx3. Grossly nonfocal exam. Strength and sensation intact and equal to bilateral upper and lower extremities. Skin: Warm and dry, no rashes or pallor appreciated. Psychiatric: Anxious, but otherwise appropriate mood and affect. Behavior appears normal. Vital Signs Vital Signs Date Time Temp Pulse Resp B/P Pulse Ox O2 Delivery O2 Flow Rate FiO2 04/13/17 16:30 72 20 127/78 100 Room Air 04/13/17 14:10 36.6 91 12 107/73 96 Room Air Initial VS: Reviewed Interpretation & Diagnostics Lab Results Interpretation Result Diagram: 04/13/17 1550 04/13/17 1550 Test 04/13/17 15:50 White Blood Count 10.8th/mm3 (3.8-10.1) Red Blood Count 5.13mil/mm3 (3.90-5.20) Hemoglobin 16.1g/dL (12.0-15.6) Hematocrit 47.8% (35.0-46.0) Mean Corpuscular Volume 93.2fL (81-100) Mean Corpuscular Hemoglobin 31.4pg (27.0-35.0) Mean Corpuscular Hemoglobin Concent 33.7% (32.0-37.0) Red Cell Distribution Width 12.4% (12.3-15.4) Platelet Count 262bil/L (150-400) Neutrophils (%) (Auto) 63.7% (40-74) Lymphocytes (%) (Auto) 25.0% (14-46) Monocytes (%) (Auto) 8.6% (4-12) Eosinophils (%) (Auto) 1.8% (0-5) Basophils (%) (Auto) 0.5% (0-3) Prothrombin Time 9.4sec (8.1-12.5) Prothromb Time International Ratio 0.88ratio Activated Partial Thromboplast Time 26.8sec (22.8-33.0) Sodium Level 140mEq/L (134-144) Potassium Level 3.6mEq/L (3.5-5.2) Chloride Level 99mEq/L (97-108) Carbon Dioxide Level 27mmol/L (18-29) Blood Urea Nitrogen 18mg/dL (6-24) Creatinine 0.65mg/dL (0.57-1.00) Estimat Glomerular Filtration Rate 134mL/min (>59) Glucose Level 107mg/dL (60-99) Calcium Level 9.0mg/dL (8.5-10.1) Magnesium Level 2.0mg/dL (1.6-2.6) Total Bilirubin 0.3mg/dL (0.0-1.2) Aspartate Amino Transf (AST/SGOT) 15U/L (0-50) Alanine Aminotransferase (ALT/SGPT) 18U/L (0-32) Alkaline Phosphatase 56U/L (25-150) Troponin T < 0.010ug/L (0.0-0.011) Total Protein 7.2g/dL (6.4-8.4) Albumin 3.9g/dL (3.4-5.0) Thyroid Stimulating Hormone (TSH) 2.240uIU/mL (0.450-4.500) Free Thyroxine 0.94ng/dL (0.82-1.77) Hold Tuttle Top Tube Received (Received) ECG Interpretation Time: 16:04 Interpreted by: ED physician Normal ECG Interpretation: Normal sinus rhythm (rate 71) X-Ray Chest Interpretation Chest Xray Interpretation: IMPRESSION: No acute cardiopulmonary disease process. Dictated by: Trinity Bush MD, PhD on 04/13/2017 at 15:44 Approved by: Trinity Bush MD, PhD on 04/13/2017 at 15:45 View: Portable Interpretation / Wet Read by: Interpret - Radiologist Re-Eval/Medical Decision Med Decision/Clinical Course In summary, 56-year-old female with a complex past medical history presenting to the ED for evaluation of increasing episodes of tachycardia that lead to near syncope and falling to the ground. She has not experienced any traumatic injuries associated with these episodes; she states that she gradually lowers herself to the ground. Differential is broad and includes dehydration, cardiogenic syncope, SVT, atrial fibrillation, hyper/hypothyroidism, other electrolyte abnormality, ACS, acute infectious process. Chest x-ray negative. EKG demonstrates sinus rhythm with no acute ischemic changes. White blood cell count of 10.8 with no left shift; CBC and CMP grossly within normal limits. Troponin negative. Thyroid studies within normal limits. Unclear etiology for the patient's symptoms, however given the increasing frequency and near syncope , as well as episodes of tachycardia (including one noted here on telemetry here in the ED), plan admission for further evaluation and management. Patient agreeable to the plan as stated, no further questions. Time of Eval: 16:15 Re-Evaluation/Progress Note: Plan for admission. Consultation : Referral / Consult Name: Kemal Chapman MD Consulted With: Hospitalist Call Returned at: 16:33 Injector Assembler: Agrees with eval, Agrees with plan, Accepts admit Note: Case discussed with Dr. Chapman. Counseled Regarding: Diagnosis, Lab results, Need for admission Discharge & Departure Primary Impression: Syncope Syncope type: unspecified Qualified Code: R55 - Syncope and collapse Additional Impression: Cardiac dysrhythmia Arrhythmia type: unspecified cardiac arrhythmia Qualified Code: I49.9 - Cardiac arrhythmia, unspecified Disposition: ADMITTED TO HOSPITAL Discharge Condition All VS Reviewed: Yes Condition: Stable Referrals: [facility] (PCP) Zain Attestation Portion of this note were transcribed by Maryjo Helms. I, Dr. Andino, personally performed the history, physical exam, and medical decision-making: I reviewed and confirmed the accuracy for the information in the transcribed note. Signed by: zain Michel, 04/13/17 190 copies to: [facility] Blu Andino MD Apr 13, 2017 15:29 Maryjo Helms Apr 13, 2017 15:32 Signed by: zain Michel, 04/13/170 copies to: [facility] Blu Andino MD Apr 13, 2017 15:29 Maryjo Helms Apr 13, 2017 15:32
--- NOTE | 2017-04-13 15:46 | DRSVH ---
PROCEDURE: X-RAY CHEST, TWO VIEWS ([id number]) INDICATIONS: palpitations TECHNIQUE: 2 views of the chest were acquired. COMPARISON: [facility], , CHEST 2VW, 06/17/2014, 2:34. FINDINGS: Surgical changes and devices: None. Lungs and pleura: No pleural effusions or pneumothorax. Lungs are clear. Mediastinum: Mediastinal contours are normal. Heart size is normal. Bones and chest wall: No suspicious bony abnormalities. Soft tissues appear unremarkable. IMPRESSION: No acute cardiopulmonary disease process. Dictated by: Trinity Bush MD, PhD on 04/13/2017 at 15:44 Approved by: Trinity Bush MD, PhD on 04/13/2017 at 15:45
[2017-04-13 15:57] LABS: BASOPHILS % (AUTO) 0.5 % (0-3); EOSINOPHILS % (AUTO) 1.8 % (0-5); MONOCYTES % (AUTO) 8.6 % (4-12); Mean Corpuscular Hemoglobin 31.4 pg (27.0-35.0); Mean Corpuscular Volume 93.2 fL (81-100); NEUTROPHILS % (AUTO) 63.7 % (40-74); Platelet Count 262 bil/L (150-400)
[2017-04-13 16:19] LABS: INR 0.88 ratio
[2017-04-13 16:30] VITALS: BP 127/78; PULSE 72; RESP 20; O2SAT 100
[2017-04-13 16:37] LABS: TROPONIN T < 0.010 ug/L (0.0-0.011)
[2017-04-13 17:10] VITALS: BP 122/74; PULSE 72; RESP 20; O2SAT 100
[2017-04-13] MEDS ORDERED: Alum-Mag Hydrox-Simeth 30 mL Suspension PO PRN (17:30)
[2017-04-13] MEDS ORDERED: Ondansetron 2 mg/mL 2 mL Inj IVPUSH PRN (17:30)
[2017-04-13] MEDS ORDERED: Polyethylene Glycol (PEG) 17 Gm Powder PO PRN (17:30)
--- NOTE | 2017-04-13 17:37 | PCM.HPMED ---
Subjective Date of Service Apr 13, 2017 Primary Provider: Admitting Physician: Kemal Chapman MD Primary Care Physician: Clinic,[facility] Residency Attending Physician: Kemal Chapman MD Admit Status: From the Emergency Department, 23-Hour Observation, Remote Telemetry Chief Complaint: Worsening palpitations/1 week History of Present Illness: 56-year-old lady with past medical history of anxiety/depression, fibromyalgia, IBS, chronic back pain, obesity, hypertension,GERD presented to emergency room due to worsening palpation of one week. Patient states she had on and off palpitations once a months for many years. For the last week patient has become more frequent happening almost daily,in the last 3 days palpation happened 2-3 times daily. She describes episodes of palpitation as "feel my heart racing: And I feel a warm sensation on epigastric area. Also will have tinge of pain in the epigastric area and back. She sometimes has diaphoresis following the episode but no diaphoresis during episodes. Episodes usually last 30 minutes. She will slowly lower herself to the floor for duration of episodes and episode resolves by itself. She states she feels she has weakness below her waist during episodes and feels that she is about to pass out. Denies lightheadedness with episodes. Denies dyspnea. She states she was told that she has history of arrhythmia on one of the episodes of office office visits months ago. There is also mention of atrial fibrillation on todays ED note but did not find any evidence of history of atrial fibrillation. She states episodes coincide with feeling of anxiety and when she is happy . She states she will was taken off multiple antianxiety medications and currently tapered down to clonazepam 1 mg by mouth daily ED course: Vitals unremarkable. Labs unremarkable. EKG normal sinus rhythm. Telemetry :patient had an episode of palpitation in the emergency room but coinciding telemetry is sinus rhythm with artifact Review of Systems: Comprehensive review of systems performed, pertinent positives and this included initially Allergies Coded Allergies: prochlorperazine maleate (Verified Allergy, Intermediate, RESTLESSNESS/' WANTED TO JUMP OUT OF MY SKIN", 04/01/17) hydromorphone (Verified Allergy, Mild, headache, 04/01/17) Penicillins (Verified Allergy, Unknown, RASH, LONG TIME AGO, 04/01/17) promethazine HCl (Verified Adverse Reaction, Severe, Restlessness, 04/01/17) acetaminophen (Verified Adverse Reaction, Intermediate, UPSET STOMACH, N/V , 04/01/17) ketorolac tromethamine (Verified Adverse Reaction, Intermediate, RESTLESSNESS, "WANTED TO JUMP OUT OF MY SKIN", 04/01/17) lisinopril (Verified Adverse Reaction, Intermediate, TINGLING, NUMBNESS, ) metoprolol (Verified Adverse Reaction, Intermediate, TINGLING NUMBNESS ON SKIN, 04/01/17) prochlorperazine edisylate (Verified Adverse Reaction, Intermediate, RESTLESSNESS/"WANTED TO JUMP OUT OF MY SKIN", 04/01/17) Uncoded Allergies: HYDROXAZINE (Allergy, Mild, 08/01/16) Home Medications Atenolol (Atenolol) 25 Mg Tablet 25 MG PO DAILY Hydrochlorothiazide (Hydrochlorothiazide) 12.5 Mg Tablet 12.5 MG PO DAILY Losartan Potassium (Losartan Potassium) 100 Mg Tablet 100 MG PO DAILY Omeprazole (Omeprazole) 20 Mg Tablet.dr 20 MG PO BID Pyridoxine (Vitamin B-6) 50 Mg Tablet 50 MG PO DAILY Sertraline HCl (Sertraline) 25 Mg Tablet 25 MG PO DAILY Sulfacetamide Sodium (Ovace) 180 Ml Cleanser 180 ML TP DAILY Valacyclovir (Valacyclovir) 1,000 Mg Tablet 2,000 MG PO DAILY Scheduled PRN Albuterol HFA (Proair HFA) 8.5 Gm Hfa.aer.ad 2 PUFFS INHALATION Q4H PRN PRN For Shortness of Breath Clonazepam (Clonazepam) 1 Mg Tablet 1 MG PO BID PRN PRN For Anxiety PMH Mention of Atrial fibrillation Rosacea Chronic foot pain Fibromyalgia Irritable bowel syndrome Thoracic outlet syndrome Mnire's disease Obesity Chronic back pain Asthma Migraines Hypertension GERD Bipolar and PTSD-[facility] Surgical History Right foot x2 Left foot x1 Appendectomy Uterine cyst Breast augmentation and repair Family History Reviewed and unremarkable Social History Hx Alcohol Use: No Hx Substance Use: Yes (THC) Smoking Status: Never Smoker Exam Vital Signs Vital Sign - Last Date Time Temp Pulse Resp B/P Pulse Ox O2 Delivery O2 Flow Rate FiO2 04/13/17 17:10 72 20 122/74 100 04/13/17 16:30 Room Air 04/13/17 14:10 36.6 Exam Gen. patient is lying comfortably in hospital bed HEENT: Head is normocephalic atraumatic, Pupils equal and reactive, extraocular movements intact, Lungs clear to auscultation bilaterally Heart regular rate and rhythm without murmurs gallops or rubs Abdomen soft nontender without hepatosplenomegaly Extremities pulses are present dorsalis pedis posterior tibialis and radial. tSkin is warm and dry there are no rashes, Psych alert and oriented to person place and time Neuro cranial nerves II through XII are grossly intact Lymph: There is no lymphadenopathy appreciated in the cervical supra infraclavicular regions : no fajardo Lab and Diagnostics Result Diagram: 04/13/17 1550 04/13/17 1550 X-Rays, CTs and MRIs PROCEDURE: X-RAY CHEST, TWO VIEWS ([id number]) INDICATIONS: palpitations TECHNIQUE: 2 views of the chest were acquired. COMPARISON: [facility], , CHEST 2VW, 06/17/2014, 2:34. FINDINGS: Surgical changes and devices: None. Lungs and pleura: No pleural effusions or pneumothorax. Lungs are clear. Mediastinum: Mediastinal contours are normal. Heart size is normal. Bones and chest wall: No suspicious bony abnormalities. Soft tissues appear unremarkable. IMPRESSION: No acute cardiopulmonary disease process. Dictated by: Trinity Bush MD, PhD on 04/13/2017 at 15:44 Assessment & Plan 56-year-old lady with past medical history of anxiety/depression, fibromyalgia, IBS, chronic back pain, obesity, hypertension,GERD presented to emergency room due to worsening palpation of one week # Palpitation -Probably SVT Due to anxiety -TFT WNL, electrolytes okay -Telemetry -Echocardiogram -trend troponin -Consider cardiology consult after echo -HB 16 , probably dehydrated,NS at 100ml/h -will consider sttress test in am if no arrythmia overnight # Anxiety/depression -Continue medications #fibromyalgia, #IBS, # chronic back pain, # obesity, #hypertension, #GERD Observation status Full code copies to: [facility] Kemal Chapman MD Apr 13, 2017 17:37
--- NOTE | 2017-04-13 17:49 | NUR ---
Admit pt admitted from Ed for SOB/anxiety/racing heart pt comes [place] [facility] in hospital bed and transfers to [facility] bed by herself. pt is teary eyed and states that she is worried about her health. Tele applied. This RN let her know that we will be monitoring her heart the entire time she is here, she states that this gives her a lot of relief. NS started per orders
[2017-04-13 18:00] VITALS: PULSE 83
[2017-04-13] MEDS: 0.9% Sodium Chloride 1,000 ML IV SCH (18:02)
[2017-04-13 18:03] VITALS: BP 162/94; PULSE 77; RESP 20; O2SAT 97
[2017-04-13 21:51] VITALS: BP 121/77; PULSE 86; RESP 20; O2SAT 93
[2017-04-14] VITALS (8 sets, daily range): BP systolic 129–177; BP diastolic 77–98; PULSE 69–100; RESP 20–21; O2SAT 95–96
[2017-04-14] MEDS: 0.9% Sodium Chloride 1,000 ML IV SCH ×2 (03:04→15:00)
[2017-04-14 06:47] LABS: BASOPHILS % (AUTO) 0.2 % (0-3); MONOCYTES % (AUTO) 7.5 % (4-12); Mean Corpuscular Hemoglobin 31.3 pg (27.0-35.0); Mean Corpuscular Volume 94.1 fL (81-100); NEUTROPHILS % (AUTO) 61.4 % (40-74); Platelet Count 223 bil/L (150-400)
[2017-04-14 07:27] LABS: TROPONIN T < 0.010 ug/L (0.0-0.011)
--- NOTE | 2017-04-14 08:00 | NUR ---
Anxiety RN at bedside explaining upcoming tests, including ECHO and STRESS test. Pt became noticeably anxious and needing lots of reassurance to calm down. Pt stated she had fallen on the treadmill with the last stress test. MD ordered PRN Xanax which was effective.
[2017-04-14] MEDS ORDERED: ALPRAZolam 0.5 mg Tablet PO PRN (08:50)
--- NOTE | 2017-04-14 11:32 | NUR ---
Off to CVL-Stress test Pt taken off unit via at 1128. Pt denied pain. Tele notified. Addendum: 04/14/17 at 1315 by REBECCA FARRIS RN Pt just returned. On tele. Denies pain. Lunch ok'd by Mervat in [employer].
[2017-04-14] MEDS ORDERED: SULFACETAMIDE SODIUM TOPICAL SCH (15:05)
--- NOTE | 2017-04-14 15:18 | NUR ---
Meds/IVF Pt NPO this AM for stress test. Upon return, home meds were restarted but given late d/t pt being away for 2nd part of the test. Once back, RN confirmed with MD that IVF were no longer needed since pt has great PO intake and a bit hypertensive. Pt denies pain. Bed in low position, upper rails up, call light in reach. Will continue to monitor.
--- NOTE | 2017-04-14 15:21 | DRSVH ---
PROCEDURE: 1 DAY TREADMILL STRESS TEST Rest and exercise myocardial perfusion SPECT with gated imaging and ejection fraction RADIOPHARMACEUTICAL: 16.3 mCi Tc-99m tetrafosmin IV at rest and 46.2 mCi Tc-99m tetrafosmin IV at pe ak exercise. [id number] was performed. INDICATIONS: CHEST PRESSURE TECHNIQUE: Radiopharmaceutical was injected at peak stress test, and also at rest. SPECT images wer e obtained. SPECT myocardial perfusion images were displayed in short axis, horizontal long axis, an d vertical long axis views. Gated images were reviewed using [employer]le [employer] software. COMPARISON: None. CARDIAC STRESS: A standard Dannie treadmill exercise tolerance test was performed by the patient under the supervision of an attending staff. The patient exercised for 3 minutes and 54 seconds; functional aerobic impai rment (JONATHAN) is 46%. Hemodynamic data: There is normal blood pressure and heart rate response to exercise stress. Jocelynn t achieved 89% of maximum predicted heart rate at peak exercise. Symptoms: Patient denied chest pain during exercise. EKG: No diagnostic EKG changes of ischemia; no ectopy. FINDINGS: Raw data: There is good myocardial labeling by radiotracer. No significant motion artifacts. Left ventricle function: Gated images demonstrate normal left ventricle wall thickening. No segment al wall motion abnormality. The left ventricle resting end-diastolic volume is 69 mL. Left ventricl e stress ejection fraction is >70% ; normal values are above 45%. Myocardial perfusion: There is a small area of mildly decreased uptake affecting the apical anterola teral wall that appears fixed on the rest and stress images. This normalizes on the prone images tiesha ing the finding more likely related to artifact. No other imaging defects appreciated. IMPRESSION: 1. Appropriate hemodynamic response to exercise (mild hypertensive response). 2. No chest pain or significant ECG changes with stress. 3. No scintigraphic evidence for significant areas of myocardial ischemia at the level of stress achi eved. 4. Normal left ventricular size and systolic function. Dictated by: Marielena Mcneill M.D. on 04/14/2017 at 15:14 Approved by: Marielena Mcneill M.D. on 04/14/2017 at 15:18
[2017-04-14] MEDS ORDERED: TRAM50TA2 PO (15:32)
[2017-04-14] MEDS ORDERED: Albuterol 2.5 mg/3 mL Inhalation Solution NEB PRN (16:00)
--- NOTE | 2017-04-14 16:23 | PCM.DIMED ---
Discharge Instructions Date of Service Apr 14, 2017 Dates of Hospitalization Apr 13, 2017 at 17:00 Discharge Diagnosis Discharge Diagnosis # Palpitation - Due to anxiety # Anxiety/depression #fibromyalgia, #IBS, # chronic back pain, # obesity, #hypertension, #GERD Diet Discharge Diet: Low fat, Low Sodium, Heart Healthy Activity Discharge Activity: Limited until seen by PCP Call your provider Call your provider for: Fever or Chills, Shortness of breath, Bleeding, Chest pain, Vomitting, Excessive diarrhea, Weakness (unilateral) Patient Instructions Patient Instructions You were hospitalized due to palpitation. EKG,stress test unremarkable .overnight telemonitoring did not show arrythmia despite patient experiencing episode of symptoms .Please follow up with PCP for Holter monitoring for 10 days . Follow-up Provider: [facility] Follow-up with PCP in: 1 week Keaml Chapman MD Apr 14, 2017 16:23
[2017-04-14] MEDS ORDERED: ALPR0.5T8 PO (16:30)
--- NOTE | 2017-04-14 17:55 | NUR ---
Discharge Pt d/c home via wc by an aide at 1750. Pt drove to ED yesterday was to drive home today. No pain meds given on shift. Pt denied pain at discharge. IV and tele d/c. Discharge info discussed with pt and importance of reaching out to PCP office for heart monitoring as discussed with hospitalist. All personal belongings left home with pt. VSS.
[2017-04-15] MEDS ORDERED: Pantoprazole 20 mg ER24 Tablet PO SCH (06:30)
[2017-04-15] MEDS ORDERED: VALACYCLOVIR PO SCH (08:30)
--- NOTE | 2017-04-15 16:49 | PCM.DC.MED ---
Discharge Summary Date of Service Apr 15, 2017 Dates of Hospitalization Date of Hospital Admission Apr 13, 2017 at 17:00 Date of Discharge: Apr 14, 2017 Providers: Admitting Physician: Kemal Jacob MD Primary Care Physician: Debbie,[facility] Residency Attending Physician: Kemal Jacob MD Diagnosis at Time of Discharge Diagnosis at Time of Discharge # Palpitation - Due to anxiety # Anxiety/depression #fibromyalgia, #IBS, # chronic back pain, # obesity, #hypertension, #GERD Procedures XRay, CTs & MRIs PROCEDURE: X-RAY CHEST, TWO VIEWS ([id number]) INDICATIONS: palpitations TECHNIQUE: 2 views of the chest were acquired. COMPARISON: [facility], , CHEST 2VW, 06/17/2014, 2:34. FINDINGS: Surgical changes and devices: None. Lungs and pleura: No pleural effusions or pneumothorax. Lungs are clear. Mediastinum: Mediastinal contours are normal. Heart size is normal. Bones and chest wall: No suspicious bony abnormalities. Soft tissues appear unremarkable. IMPRESSION: No acute cardiopulmonary disease process. Dictated by: Trinity Bush MD, PhD on 04/13/2017 at 15:44 Other Diagnostics PROCEDURE: 1 DAY TREADMILL STRESS TEST Rest and exercise myocardial perfusion SPECT with gated imaging and ejection fraction RADIOPHARMACEUTICAL: 16.3 mCi Tc-99m tetrafosmin IV at rest and 46.2 mCi Tc- 99m tetrafosmin IV at peak exercise. [id number] was performed. INDICATIONS: CHEST PRESSURE TECHNIQUE: Radiopharmaceutical was injected at peak stress test, and also at rest. SPECT images were obtained. SPECT myocardial perfusion images were displayed in short axis, horizontal long axis, and vertical long axis views. Gated images were reviewed using Auto[employer]ANT software. COMPARISON: None. CARDIAC STRESS: A standard Dannie treadmill exercise tolerance test was performed by the patient under the supervision of an attending staff. The patient exercised for 3 minutes and 54 seconds; functional aerobic impairment (JONATHAN) is 46%. Hemodynamic data: There is normal blood pressure and heart rate response to exercise stress. Patient achieved 89% of maximum predicted heart rate at peak exercise. Symptoms: Patient denied chest pain during exercise. EKG: No diagnostic EKG changes of ischemia; no ectopy. FINDINGS: Raw data: There is good myocardial labeling by radiotracer. No significant motion artifacts. Left ventricle function: Gated images demonstrate normal left ventricle wall thickening. No segmental wall motion abnormality. The left ventricle resting end-diastolic volume is 69 mL. Left ventricle stress ejection fraction is >70% ; normal values are above 45%. Myocardial perfusion: There is a small area of mildly decreased uptake affecting the apical anterolateral wall that appears fixed on the rest and stress images. This normalizes on the prone images making the finding more likely related to artifact. No other imaging defects appreciated. IMPRESSION: 1. Appropriate hemodynamic response to exercise (mild hypertensive response). 2. No chest pain or significant ECG changes with stress. 3. No scintigraphic evidence for significant areas of myocardial ischemia at the level of stress achieved. 4. Normal left ventricular size and systolic function. Dictated by: Marielena Mcneill M.D. on 04/14/2017 at 15:14 Brief History per HPI 56-year-old lady with past medical history of anxiety/depression, fibromyalgia, IBS, chronic back pain, obesity, hypertension,GERD presented to emergency room due to worsening palpation of one week. Patient states she had on and off palpitations once a months for many years. For the last week patient has become more frequent happening almost daily,in the last 3 days palpation happened 2-3 times daily. She describes episodes of palpitation as "feel my heart racing: And I feel a warm sensation on epigastric area. Also will have tinge of pain in the epigastric area and back. She sometimes has diaphoresis following the episode but no diaphoresis during episodes. Episodes usually last 30 minutes. She will slowly lower herself to the floor for duration of episodes and episode resolves by itself. She states she feels she has weakness below her waist during episodes and feels that she is about to pass out. Denies lightheadedness with episodes. Denies dyspnea. She states she was told that she has history of arrhythmia on one of the episodes of office office visits months ago. There is also mention of atrial fibrillation on todays ED note but did not find any evidence of history of atrial fibrillation. She states episodes coincide with feeling of anxiety and when she is happy . She states she will was taken off multiple antianxiety medications and currently tapered down to clonazepam 1 mg by mouth daily ED course: Vitals unremarkable. Labs unremarkable. EKG normal sinus rhythm. Telemetry :patient had an episode of palpitation in the emergency room but coinciding telemetry is sinus rhythm with artifact Hospital Course 56-year-old lady with past medical history of anxiety/depression, fibromyalgia, IBS, chronic back pain, obesity, hypertension,GERD presented to emergency room due to worsening palpation of one week # Palpitation -Probably Due to anxiety. Patient had an episode of palpitation in hospital with no telemetry events. Prescribed Xanax -TFT WNL, electrolytes okay -Echocardiogram done and advised patient to follow-up results with PCP - troponin negative - sttress test negative -Discussed case with cardiology Dr Tierney . Unlikely to be due to cardiac arrhythmia but may need Holter monitor for 10 more days. Patient follows at residency clinic. spoke with resident Dr Espinoza PGY3 ,she relayed the message to her primary resident physician to prescribe Holter monitor # Anxiety/depression -Continue medications.add xanax #fibromyalgia, #IBS, # chronic back pain, # obesity, #hypertension, #GERD Discharged home Condition on discharge stable Exam Vital Signs (Last) Date Time Temp Pulse Resp B/P Pulse Ox O2 Delivery O2 Flow Rate FiO2 04/14/17 17:03 71 21 134/78 96 Room Air 04/14/17 16:35 36.6 Exam Gen. patient is lying comfortably in hospital bed HEENT: Head is normocephalic atraumatic, Pupils equal and reactive, extraocular movements intact, Lungs clear to auscultation bilaterally Heart regular rate and rhythm without murmurs gallops or rubs Abdomen soft nontender without hepatosplenomegaly Extremities pulses are present dorsalis pedis posterior tibialis and radial. tSkin is warm and dry there are no rashes, Psych alert and oriented to person place and time Neuro cranial nerves II through XII are grossly intact Lymph: There is no lymphadenopathy appreciated in the cervical supra infraclavicular regions : no fajardo Test 04/13/17 15:50 04/14/17 06:08 Prothrombin Time 9.4sec (8.1-12.5) Prothromb Time International Ratio 0.88ratio Activated Partial Thromboplast Time 26.8sec (22.8-33.0) Thyroid Stimulating Hormone (TSH) 2.240uIU/mL (0.450-4.500) Free Thyroxine 0.94ng/dL (0.82-1.77) Hold Tuttle Top Tube Received (Received) White Blood Count 8.0th/mm3 (3.8-10.1) Red Blood Count 4.73mil/mm3 (3.90-5.20) Hemoglobin 14.8g/dL (12.0-15.6) Hematocrit 44.5% (35.0-46.0) Mean Corpuscular Volume 94.1fL (81-100) Mean Corpuscular Hemoglobin 31.3pg (27.0-35.0) Mean Corpuscular Hemoglobin Concent 33.3% (32.0-37.0) Red Cell Distribution Width 12.3% (12.3-15.4) Platelet Count 223bil/L (150-400) Neutrophils (%) (Auto) 61.4% (40-74) Lymphocytes (%) (Auto) 28.8% (14-46) Monocytes (%) (Auto) 7.5% (4-12) Eosinophils (%) (Auto) 2.0% (0-5) Basophils (%) (Auto) 0.2% (0-3) Sodium Level 143mEq/L (134-144) Potassium Level 4.1mEq/L (3.5-5.2) Chloride Level 108mEq/L (97-108) Carbon Dioxide Level 24mmol/L (18-29) Blood Urea Nitrogen 16mg/dL (6-24) Creatinine 0.53mg/dL (0.57-1.00) Estimat Glomerular Filtration Rate 170mL/min (>59) Glucose Level 95mg/dL (60-99) Calcium Level 8.7mg/dL (8.5-10.1) Magnesium Level 2.0mg/dL (1.6-2.6) Total Bilirubin 0.2mg/dL (0.0-1.2) Aspartate Amino Transf (AST/SGOT) 12U/L (0-50) Alanine Aminotransferase (ALT/SGPT) 15U/L (0-32) Alkaline Phosphatase 49U/L (25-150) Troponin T < 0.010ug/L (0.0-0.011) Total Protein 6.0g/dL (6.4-8.4) Albumin 3.3g/dL (3.4-5.0) Discharge Medications Discharge Medications ([vitamin d3]) Unknown Dose DAILY (Reported) Atenolol (Atenolol) 25 Mg Tablet 25 MG PO DAILY (Reported) Hydrochlorothiazide (Hydrochlorothiazide) 12.5 Mg Tablet 12.5 MG PO DAILY ( Reported) Losartan Potassium (Losartan Potassium) 100 Mg Tablet 100 MG PO DAILY (Reported ) Omeprazole (Omeprazole) 20 Mg Tablet.dr 20 MG PO QAM (Reported) Pyridoxine (Vitamin B-6) 50 Mg Tablet 50 MG PO DAILY (Reported) Sertraline HCl (Sertraline) 25 Mg Tablet 25 MG PO DAILY (Reported) Sulfacetamide Sodium (Ovace) 180 Ml Cleanser 180 ML TP DAILY (Reported) Tramadol (Tramadol) 50 Mg Tablet 50 MG PO TID (Reported) Valacyclovir (Valacyclovir) 1,000 Mg Tablet 2,000 MG PO DAILY (Reported) As needed Albuterol HFA (Proair HFA) 8.5 Gm Hfa.aer.ad 2 PUFFS INHALATION Q4H PRN PRN For Shortness of Breath (Reported) Alprazolam (Alprazolam) 0.5 Mg Tablet 0.5 MG PO TID PRN PRN For Anxiety Prescribed by: KEMAL JACOB MD Clonazepam (Clonazepam) 1 Mg Tablet 1 MG PO BID PRN PRN For Anxiety (Reported) Followup Plan Disposition: Home Discharge Diet: Low fat, Low Sodium, Heart Healthy Discharge Activity: Limited until seen by PCP Patient Instructions You were hospitalized due to palpitation. EKG,stress test unremarkable .overnight telemonitoring did not show arrythmia despite patient experiencing episode of symptoms .Please follow up with PCP for Holter monitoring for 10 days . Follow-up Provider: [facility] Follow-up with PCP in: 1 week copies to: [facility] Kemal Jacob MD Apr 15, 2017 16:49
== END 2017-04-14 17:50 | disposition home or self-care (01) ==
LOC: SED 14:03 → MPC 17:00
PROVIDERS: ADMIT Internal Medicine; ATTEND Internal Medicine
DX: R00.2 Palpitations (principal); F41.9 Anxiety disorder, unspecified; F32.9 Major depressive disorder, single episode, unspecified; M79.7 Fibromyalgia; K58.9 Irritable bowel syndrome, unspecified; M54.9 Dorsalgia, unspecified; I10 Essential (primary) hypertension; K21.9 Gastro-esophageal reflux disease without esophagitis; E66.9 Obesity, unspecified; J45.909 Unspecified asthma, uncomplicated; G43.909 Migraine, unspecified, not intractable, without status migrainosus; F43.10 Post-traumatic stress disorder, unspecified; H81.09 Meniere's disease, unspecified ear; G54.0 Brachial plexus disorders; I48.91 Unspecified atrial fibrillation; L71.9 Rosacea, unspecified; Z79.51 Long term (current) use of inhaled steroids
CPT/HCPCS: 36415; 71020; 78452; 80053; 83735; 84439; 84443; 84484; 85025; 85610; 85730; 93005; 93017; 96360; 99285; A9502; C8929; G0378; J7030; Q9957

== ENCOUNTER 2017-06-10 16:15 | Emergency (ER) | payer OTHER ==
[~2017-06-10] VITALS: Ht 157.5 cm; Wt 107.7 kg
[~2017-06-10 16:15] MED LIST changes: +ALPR0.5T8 PO; +TRAM50TA2 PO; -tramadol PO
[2017-06-10 16:16] VITALS: BP 148/100; PULSE 85; RESP 20; O2SAT 98
[2017-06-10 16:53] LABS: BASOPHILS % (AUTO) 0.5 % (0-3); Mean Corpuscular Hemoglobin 31.7 pg (27.0-35.0); Mean Corpuscular Volume 94.2 fL (81-100); Platelet Count 249 bil/L (150-400)
--- NOTE | 2017-06-10 17:00 | ED.REPORT ---
HPI-General Illness Date of Service Jun 10, 2017 ED Provider: Ruiz Ellis MD Patient is a 56 year old female with a hx of HTN and anxiety who presents to the ED from complaining of palpitations since she was switched back to atenolol. Patient had been on atenolol for some time and then was switched to Metoprolol. She switched back after having a reaction to Metoprolol. Associated symptoms include intermittent sharp "twinges" of chest pain that can last up to 2-3 hours, elevated HR, elevated BP, SOB, episodic blurred vision, lightheadedness, and mild LE edema when standing for a prolonged time. She denies nausea, vomiting, diaphoresis, cough, fever, or any other symptoms. Pt reports she was recently hospitalized for similar symptoms. Upon review of her admission from 04/13-04/15, pt had a normal stress test and normal echocardiogram. Her palpitations were thought to most likely be due to anxiety and she was prescribed Xanax . Upon chart review, she has a possible hx of atrial fibrillation. Nursing Notes Stated Complaint: HEART PALPATATION,SOB Chief Complaint: Dysrhythmia/Cardiac Nursing Notes Reviewed: Yes Allergies: Coded Allergies: prochlorperazine maleate (Verified Allergy, Intermediate, RESTLESSNESS/' WANTED TO JUMP OUT OF MY SKIN", 06/10/17) hydromorphone (Verified Allergy, Mild, headache, 06/10/17) Penicillins (Verified Allergy, Unknown, RASH, LONG TIME AGO, 06/10/17) promethazine HCl (Verified Adverse Reaction, Severe, Restlessness, 06/10/17 ) acetaminophen (Verified Adverse Reaction, Intermediate, UPSET STOMACH, N/V , 06/10/17) ketorolac tromethamine (Verified Adverse Reaction, Intermediate, RESTLESSNESS, "WANTED TO JUMP OUT OF MY SKIN", 06/10/17) lisinopril (Verified Adverse Reaction, Intermediate, TINGLING, NUMBNESS, ) metoprolol (Verified Adverse Reaction, Intermediate, TINGLING NUMBNESS ON SKIN, 06/10/17) prochlorperazine edisylate (Verified Adverse Reaction, Intermediate, RESTLESSNESS/"WANTED TO JUMP OUT OF MY SKIN", 06/10/17) Uncoded Allergies: HYDROXAZINE (Allergy, Mild, 08/01/16) Scheduled ([vitamin d3]) Unknown Dose DAILY Atenolol (Atenolol) 25 Mg Tablet 25 MG PO DAILY Hydrochlorothiazide (Hydrochlorothiazide) 12.5 Mg Tablet 12.5 MG PO DAILY Losartan Potassium (Losartan Potassium) 100 Mg Tablet 100 MG PO DAILY Omeprazole (Omeprazole) 20 Mg Tablet.dr 20 MG PO QAM Pyridoxine (Vitamin B-6) 50 Mg Tablet 50 MG PO DAILY Sertraline HCl (Sertraline) 25 Mg Tablet 25 MG PO DAILY Sulfacetamide Sodium (Ovace) 180 Ml Cleanser 180 ML TP DAILY Tramadol (Tramadol) 50 Mg Tablet 50 MG PO TID Valacyclovir (Valacyclovir) 1,000 Mg Tablet 2,000 MG PO DAILY Scheduled PRN Albuterol HFA (Proair HFA) 8.5 Gm Hfa.aer.ad 2 PUFFS INHALATION Q4H PRN PRN For Shortness of Breath Alprazolam (Alprazolam) 0.5 Mg Tablet 0.5 MG PO TID PRN PRN For Anxiety Clonazepam (Clonazepam) 1 Mg Tablet 1 MG PO BID PRN PRN For Anxiety General Time Seen by MD: 16:23 Chief Complaint Other (Palpitations ) Hx Obtained From: Patient Arrived By: Walk-in Sudden in Onset?: Yes Onset Occurred: Onset unknown Symptom Duration: Intermittent Location: : Chest Quality: Sharp Severity: Current: Moderate Severity: Maximum: Severe Recent Healthcare: Recent hospitalization Similar Sx Previous: Yes Past Medical History Past Medical History Atrial fibrillation Rosacea Chronic foot pain Fibromyalgia Irritable bowel syndrome Thoracic outlet syndrome Mnire's disease Obesity Chronic back pain Asthma Undergoing evaluation for MS or lupus, awaiting scheduled MRI and followup with a software asset manager Migraines Hypertension GERD Bipolar and PTSD-ad[facility] 2014 Cancer fibroids pre-diabetic Past Surgical History Right foot x2 Left foot x1 Appendectomy Uterine cyst Breast augmentation and repair Family History Father had stroke at 38 years old Smoking History Never Smoker Social History Alcohol Use: Denies alcohol use Drug Use: THC Other Social History: Poor social support, Lives alone, , Local resident Occupation lives by self former [employer] Status Independent Review of Systems Full Review of Systems Constitutional: Denies: Fever Eyes: Reports: Blurred bilateral Respiratory: Reports: Shortness of breath, Denies: Non-productive cough Cardiovascular: Reports: Chest pain, Palpitations GI: Denies: Nausea, Vomiting Musculoskeletal: Reports: Extremity swelling Skin: Denies Diaphoresis Neurologic: Reports: Lightheaded Complete sys rev & neg: except as marked. Physical Exam Vital Signs Vital Signs Date Time Temp Pulse Resp B/P Pulse Ox O2 Delivery O2 Flow Rate FiO2 06/10/17 17:46 85 23 156/72 95 Room Air 06/10/17 16:16 36.9 85 20 148/100 98 Room Air Initial VS: Reviewed, Vital signs normal Head / Eyes: Atraumatic, Normocephalic Neck: Supple, Full range of motion Respiratory: Breath sounds normal, Clear to auscultation, No respiratory distress Abdomen / GI: Soft, Non-tender Skin: Warm, Dry Neurologic: Alert, Oriented, Nonfocal Psychiatric: Mood/affect normal, Behavior normal, Normal thought content General/Constitutional: Awake, Alert Behavior: Positive: Anxious Cardiovascular: Heart rate NL, Regular rhythm, Heart sounds NL Trace bilateral LE edema Interpretation & Diagnostics Lab Results Interpretation Result Diagram: 06/10/17 1640 06/10/17 1640 Test 06/10/17 16:40 06/10/17 17:03 White Blood Count 11.0th/mm3 (3.8-10.1) Red Blood Count 4.82mil/mm3 (3.90-5.20) Hemoglobin 15.3g/dL (12.0-15.6) Hematocrit 45.4% (35.0-46.0) Mean Corpuscular Volume 94.2fL (81-100) Mean Corpuscular Hemoglobin 31.7pg (27.0-35.0) Mean Corpuscular Hemoglobin Concent 33.7% (32.0-37.0) Red Cell Distribution Width 12.3% (12.3-15.4) Platelet Count 249bil/L (150-400) Neutrophils (%) (Auto) 65.0% (40-74) Lymphocytes (%) (Auto) 24.2% (14-46) Monocytes (%) (Auto) 8.0% (4-12) Eosinophils (%) (Auto) 2.0% (0-5) Basophils (%) (Auto) 0.5% (0-3) D-Dimer < 0.50mg/L FEU (<0.50) Sodium Level 139mEq/L (134-144) Potassium Level 3.8mEq/L (3.5-5.2) Chloride Level 100mEq/L (97-108) Carbon Dioxide Level 25mmol/L (18-29) Blood Urea Nitrogen 17mg/dL (6-24) Creatinine 0.56mg/dL (0.57-1.00) Estimat Glomerular Filtration Rate 159mL/min (>59) Glucose Level 80mg/dL (60-99) Calcium Level 8.8mg/dL (8.5-10.1) Magnesium Level 1.9mg/dL (1.6-2.6) Total Bilirubin 0.5mg/dL (0.0-1.2) Aspartate Amino Transf (AST/SGOT) 18U/L (0-50) Alanine Aminotransferase (ALT/SGPT) 19U/L (0-32) Alkaline Phosphatase 54U/L (25-150) Troponin T < 0.010ug/L (0.0-0.011) Total Protein 7.4g/dL (6.4-8.4) Albumin 3.8g/dL (3.4-5.0) Thyroid Stimulating Hormone (TSH) 1.740uIU/mL (0.450-4.500) Hold Tuttle Top Tube Received (Received) ECG Interpretation ECG Interpretation: sinus rate 80 normal axis interval no st segment elevation abnormal R wave progression with early transition otherwise unremarkable and unchanged from prior dated 04/13/17 Time: 16:46 Interpreted by: ED physician X-Ray Chest Interpretation Chest Xray Interpretation: IMPRESSION: No acute cardiopulmonary disease process. Dictated by: Trinity Bush MD, PhD on 06/10/2017 at 17:03 Approved by: Trinity Bush MD, PhD on 06/10/2017 at 17:03 View: AP & lat Interpretation / Wet Read by: Interpret - Radiologist Re-Eval/Medical Decision Med Decision/Clinical Course Patient is a 56 year old female with a hx of HTN and anxiety who presents to the ED from complaining of palpitations since she was switched back to atenolol. Patient had been on atenolol for some time and then was switched to Metoprolol. She switched back after having a reaction to Metoprolol. Associated symptoms include intermittent sharp "twinges" of chest pain that can last up to 2-3 hours, elevated HR, elevated BP, SOB, episodic blurred vision, lightheadedness, and mild LE edema when standing for a prolonged time. She denies nausea, vomiting, diaphoresis, cough, fever, or any other symptoms. Pt reports she was recently hospitalized for similar symptoms. Upon review of her admission from 04/13-04/15, pt had a normal stress test and normal echocardiogram. Her palpitations were thought to most likely be due to anxiety and she was prescribed Xanax . Upon chart review, she has a possible hx of atrial fibrillation. Here in the emergency department the patient is quite anxious. Hemodynamic stable and afebrile. Continuous cardiac monitoring/rhythm strip reveals sinus rhythm. She has good pulse oximetry reading and good oxygen saturation. EKG: sinus rate 80 normal axis interval no st segment elevation abnormal R wave progression with early transition otherwise unremarkable and unchanged from prior dated 04/13/17 CXR: Obtained, reviewed and interpreted by myself shows no evidence of infiltrates, effusions or pneumothorax. Cardiac and mediastinal silhouette normal. No bony or soft tissue abnormalities. Laboratory studies obtained as below: D-dimer neg CBC unremark CMP unremark TSH w/in nL limits trop neg Overall presentation is unconvincing for acute coronary syndrome. Initial screening EKG and troponin are reassuring. Patient had extensive workup recently in the setting of identical symptoms at which time stress test and echocardiogram were normal. My suspicion for cardiac ischemia is extremely low. I considered pulmonary embolism however this seems unlikely and she is relatively low risk for PE. D-dimer is negative and there are no findings of unilateral calf swelling or tenderness suggestive of DVT. Telemetry monitoring revealed no arrhythmia. I see no documented history to convince me that the patient is experiencing significant arrhythmias. TSH is within normal limits essentially ruling out thyroid disease. Patient is advised to continue taking her atenolol and follow up closely with her primary care physician. She will return immediately should she develop any recurrent episodes of palpitations or chest pain. Patient states that she is quite reassured and would like to go home.Prior to discharge follow-up and return precautions were reviewed in detail with the patient who verbalized understanding and agreement with the plan. The patient was discharged in stable condition. Time of Eval: 17:45 Re-Evaluation/Progress Note: Discussed lab, imaging, and EKG results. Discussed plan for discharge with cardiology f/u. Patient understands and agrees with plan. All questions addressed at this time. Counseled Regarding: Diagnosis, Lab results, Need for follow-up, When/why to return to ED Discharge & Departure Primary Impression: Palpitations Additional Impression: Anxiety Disposition: Home Discharge Condition All VS Reviewed: Yes Condition: Stable Additional Instructions: Thank you for seeking care at the emergency room. It is difficult for us to make definitive diagnoses in the ED but we believe that you are experiencing palpitations. Our primary goal today in the ED was to evaluate you for any life-threatening conditions. Your evaluation was reassuring. We did tests to look for blood clots , heart attack, and thyroid disease. These were all normal. Continue to take your Atenolol and Xanax as prescribed. You should follow-up with your book editor. Call Monday to schedule an appointment. Follow up with your primary doctor in the next week as well. You should return to the ED immediately if you develop fevers, vomiting, cough, shortness of breath, chest pain, lightheadedness, weakness, increased palpitations, passing out, or any other concerning signs or symptoms. Thank you for letting us partake in your care today. Referrals: [facility] (PCP) Scribe Attestation Portions of this note were transcribed by Torrie Méndez. I, Dr. Ellis personally performed the history, physical exam and medical decision-making; I reviewed and confirmed the accuracy of the information in the transcribed note. Signed by: Nabeel Shepard, 06/10/17 copies to: [facility] Ruiz Ellis MD Jun 10, 2017 17:00 TORRIE MÉNDEZ Jun 10, 2017 17:08
--- NOTE | 2017-06-10 17:05 | DRSVH ---
PROCEDURE: X-RAY CHEST, TWO VIEWS ([id number]) INDICATIONS: palpitations TECHNIQUE: 2 views of the chest were acquired. COMPARISON: [facility], CR, XR CHEST 2VW, 04/13/2017, 15:25. FINDINGS: Surgical changes and devices: None. Lungs and pleura: No pleural effusions or pneumothorax. Lungs are clear. Mediastinum: Mediastinal contours are normal. Heart size is normal. Bones and chest wall: No suspicious bony abnormalities. Soft tissues appear unremarkable. IMPRESSION: No acute cardiopulmonary disease process. Dictated by: Trinity Bush MD, PhD on 06/10/2017 at 17:03 Approved by: Trinity Bush MD, PhD on 06/10/2017 at 17:03
[2017-06-10 17:14] LABS: Magnesium 1.9 mg/dL (1.6-2.6)
[2017-06-10 17:23] LABS: TROPONIN T < 0.010 ug/L (0.0-0.011)
[2017-06-10] MEDS ORDERED: LORazepam 1 mg Tablet PO ONE (17:45)
[2017-06-10 17:46] VITALS: BP 156/72; PULSE 85; RESP 23; O2SAT 95
== END 2017-06-10 18:10 | disposition home or self-care (01) ==
LOC: SED 16:15
DX: R00.2 Palpitations (principal); F41.9 Anxiety disorder, unspecified; I10 Essential (primary) hypertension; K21.9 Gastro-esophageal reflux disease without esophagitis; Z85.9 Personal history of malignant neoplasm, unspecified; Z88.0 Allergy status to penicillin; Z88.5 Allergy status to narcotic agent; Z88.6 Allergy status to analgesic agent; Z88.8 Allergy status to other drugs, medicaments and biological substances